=== PATIENT | female | born 1975 | race Two or more races ===

== ENCOUNTER 2018-05-27 02:20 | Emergency (ER) | payer SELFPAY ==
[~2018-05-27] VITALS: Ht 152.4 cm; Wt 77.1 kg
[2018-05-27] MEDS ORDERED: cefTRIAXone SOD 1,000 MG VL IM ONE (02:30)
[2018-05-27] MEDS ORDERED: DEXAMETHASONE SOD PHOS 10MG/1ML VIAL INJ IM ONE (02:30)
[2018-05-27] MEDS ORDERED: BENZOCAINE (DENTAL) 20 % SPRAY 60ML MT ONE ×2 (03:26→03:45)
[2018-05-27 03:33] VITALS: BP 109/55
[2018-05-27] MEDS ORDERED: ACETAMINOPHEN/CODEINE#3 (300/30mg) TAB PO ONE (03:45)
== END 2018-05-27 03:39 | disposition home or self-care (01) ==
LOC: ER 02:25
DX: J03.80 Acute tonsillitis due to other specified organisms (principal); B96.89 Other specified bacterial agents as the cause of diseases classified elsewhere
CPT/HCPCS: 70360; 96372; 99284; J0696; J1100

== ENCOUNTER 2021-12-16 18:45 | Emergency (ER) | payer OTHER ==
[~2021-12-16] VITALS: Ht 149.9 cm; Wt 90.7 kg
[2021-12-16] MEDS ORDERED: cefTRIAXone 1GM/50ML D5W 50 ML IV ONE (19:15)
[2021-12-16] MEDS ORDERED: SODIUM CHLORIDE 0.9% 1,000 ML IV ONE (19:15)
[2021-12-16 20:13] LABS: Basophils # (auto) 0 10 ^3/uL (0-0.2); Basophils % (auto) 0.2 % (0.0-2.0); Eosinophils # (auto) 0.2 10 ^3/uL (0-0.8); Hematocrit 28.7 % (36.0-46.0); Hemoglobin 8.6 g/dL (12.2-16.2); Lymphocytes # (auto) 1.3 10 ^3/uL (0.4-5.4); Lymphocytes % (auto) 6.4 % (10.0-50.0); Mean Corpuscular Hemoglobin 19.1 pg (28.0-32.0); Mean Corpuscular Hgb Conc. 30.2 g/dL (32.0-36.0); Mean Corpuscular Volume 63.2 fL (80.0-100.0); Monocytes # (auto) 0.6 10 ^3/uL (0-1.3); Neutrophils # (auto) 18.8 10 ^3/uL (1.6-8.6); Neutrophils % (auto) 89.4 % (37.0-80.0); Red Blood Cells 4.53 10^6/uL (4.0-5.20); Red Cell Distribution Width 18.3 % (11.8-14.3)
[2021-12-16 20:34] LABS: Albumin 3.2 g/dL (3.4-5.0); Calcium 8.1 mg/dL (8.5-10.1); Magnesium 2.1 mg/dL (1.6-2.6); Potassium 3.8 mmol/L (3.5-5.1)
[2021-12-16 20:39] LABS: Lactic Acid w/Reflex 2.1 mmol/L (0.4-2.0)
[2021-12-16 20:43] LABS: BUN/Creatinine Ratio 12.2; Bilirubin, Total 0.2 mg/dL (0.2-1.0); CRP High Sensitivity 1.66 mg/dL (< 0.3); Total Protein 8.1 g/dL (6.4-8.2)
[2021-12-16] MEDS ORDERED: SODIUM CHLORIDE 0.9% 1,000 ML IV SCH (21:15)
[2021-12-16] MEDS ORDERED: ONDANSETRON HCL 4 MG/2 ML VIAL IV PRN (21:15)
[2021-12-16] MEDS ORDERED: DEXTROSE (50%) 50ML SYRG IV PRN (21:15)
[2021-12-16] MEDS ORDERED: VANCOMYCIN PER PHARMACY 0 MG IV SCH (21:15)
[2021-12-16] MEDS ORDERED: MORPHINE SULFATE INJ 2 MG/ml SYRG IV PRN (21:15)
[2021-12-16] MEDS ORDERED: DOCUSATE SOD 100 MG CAP PO PRN (21:15)
[2021-12-16] MEDS ORDERED: IBUPROFEN 600 MG TAB PO PRN (21:15)
[2021-12-16] MEDS ORDERED: ASCORBIC ACID 500 MG TAB PO SCH (22:00)
[2021-12-16] MEDS ORDERED: VANCOMYCIN 1GM/250ML 250 ML IV ONE (22:00)
[2021-12-16] MEDS ORDERED: FAMOTIDINE (10MG/ML) 2ML VL IV SCH (22:00)
[2021-12-16] MEDS ORDERED: InsuLIN REG 1unit/0.01ml Soln (100units/ml) SC SCH (22:00)
[2021-12-16] MEDS ORDERED: ACCU-CHEK COMFORT CURVE STRIP VI SCH (22:00)
[2021-12-16 23:34] LABS: Urine Bacteria FEW /hpf (None Seen); Urine Blood 3+ /uL (Negative); Urine Specific Gravity 1.007 (1.001-1.035); Urine WBC 1 /hpf (0 - 5)
[2021-12-17] MEDS ORDERED: VANCOMYCIN 1GM/250ML 250 ML IV ONE (00:15)
[2021-12-17 02:59] VITALS: BP 122/62
[2021-12-17] MEDS ORDERED: cefTRIAXone 1GM/50ML D5W 50 ML IV SCH (09:00)
[2021-12-17] MEDS ORDERED: ZINC SULFATE 220mg CAP or TAB PO SCH (10:00)
[2021-12-17] MEDS ORDERED: MULTIPLE VITAMIN TAB PO SCH (10:00)
== END 2021-12-17 03:39 | disposition short-term general hospital (02) ==
LOC: EDBD 18:45 → ER 18:45
DX: D72.829 Elevated white blood cell count, unspecified (principal); D64.9 Anemia, unspecified; Z20.822 Contact with and (suspected) exposure to COVID-19
CPT/HCPCS: 36415; 71045; 74176; 80053; 81001; 82962; 83036; 83605; 83690; 83735; 83880; 84484; 84702; 85025; 86141; 86308; 87040; 87086; 87426; 87804; 93005; 96365; 96367; 96375; 99285; J0696; J3370; J3490; J7030; 96366

== ENCOUNTER 2023-02-28 06:03 | Emergency (ER) | payer SELFPAY ==
[~2023-02-28] VITALS: Ht 149.9 cm; Wt 93.3 kg
[2023-02-28 06:24] VITALS: BP 144/97; PULSE 90; RESP 16; TEMP 98.4; O2SAT 99
[2023-02-28] MEDS ORDERED: KETOROLAC TROMETH 30 MG/ML 1ML VIAL IM ONE (08:15)
[2023-02-28] MEDS ORDERED: ACETAMINOPHEN 500 MG TAB PO ONE (08:15)
[2023-02-28] MEDS ORDERED: DexAMETHasone SOD PHOS 10MG/1ML VIAL INJ PO ONE (08:15)
[2023-02-28] MEDS ORDERED: cefTRIAXone SOD 1,000 MG VL IM ONE (08:15)
[2023-02-28] MEDS ORDERED: PENI500T2 PO (08:29)
[2023-02-28] MEDS ORDERED: IBUP-1454 PO (08:29)
== END 2023-02-28 09:22 | disposition home or self-care (01) ==
LOC: ER 06:03
DX: J03.90 Acute tonsillitis, unspecified (principal); Z88.6 Allergy status to analgesic agent; Z79.1 Long term (current) use of non-steroidal anti-inflammatories (NSAID); Z79.899 Other long term (current) drug therapy
CPT/HCPCS: 96372; 99284; J0696; J1100; J1885

== ENCOUNTER 2023-04-25 17:26 | Emergency (ER) | payer SELFPAY ==
[~2023-04-25] VITALS: Ht 144.8 cm; Wt 93.4 kg
[~2023-04-25 17:26] MED LIST: IBUP-1454 PO; PENI500T2 PO
[2023-04-25] MEDS ORDERED: CLIN-203 PO (20:10)
[2023-04-25] MEDS ORDERED: IBUP1TAB5 PO (20:10)
[2023-04-25] MEDS ORDERED: LIDO2SOL18 MT (20:10)
[2023-04-25] MEDS ORDERED: PRED20TA2 PO (20:10)
[2023-04-25] MEDS ORDERED: IBUPROFEN 800 MG TAB PO ONE ×2 (20:15→20:55)
[2023-04-25] MEDS ORDERED: DexAMETHasone SOD PHOS 10MG/1ML VIAL INJ IM ONE (20:15)
[2023-04-25] MEDS ORDERED: LIDOCAINE VISCOUS 2% 15ML UD MT ONE (20:15)
[2023-04-25] MEDS ORDERED: cefTRIAXone SOD 1,000 MG VL IM ONE (20:15)
[2023-04-25] MEDS ORDERED: cefTRIAXone SOD 1,000 MG VL ONE (20:52)
[2023-04-25] MEDS ORDERED: DexAMETHasone SOD PHOS 10MG/1ML VIAL INJ ONE (20:52)
[2023-04-25] MEDS ORDERED: LIDOCAINE VISCOUS 2% 15ML UD ONE (20:55)
[2023-04-25 21:03] VITALS: BP 146/86; PULSE 84; RESP 19; TEMP 98.2; O2SAT 98
== END 2023-04-25 21:15 | disposition home or self-care (01) ==
LOC: ER 17:26
DX: J03.90 Acute tonsillitis, unspecified (principal); Z88.5 Allergy status to narcotic agent
CPT/HCPCS: 96372; 99284; J0696; J1100

== ENCOUNTER 2024-02-20 11:31 | Emergency (ER) | payer SELFPAY ==
[~2024-02-20] VITALS: Ht 144.8 cm; Wt 96.3 kg
[~2024-02-20 11:31] MED LIST changes: +CLIN-203 PO; +IBUP1TAB5 PO; +LIDO2SOL18 MT; +PRED20TA2 PO
[2024-02-20 13:02] VITALS: BP 144/97; PULSE 98; RESP 16; TEMP 98.5; O2SAT 97
[2024-02-20] MEDS ORDERED: IBUP-1454 PO (13:07)
[2024-02-20] MEDS ORDERED: LIDOCAINE HCL 1 % PF INJ 2ML AMP IJ ONE (13:15)
[2024-02-20] MEDS: TETANUS-DIPTH-ACEL PERTUSSIS 0.5ML SYR Tdap IM ONE (13:53)
[2024-02-20] MEDS: LIDOCAINE W/ EPINEPHRINE 1% 20ML VIAL ID ONE (13:53)
== END 2024-02-20 14:24 | disposition home or self-care (01) ==
LOC: ER 11:31
DX: S61.011A Laceration without foreign body of right thumb without damage to nail, initial encounter (principal); Z88.6 Allergy status to analgesic agent; W26.8XXA Contact with other sharp object(s), not elsewhere classified, initial encounter; Y93.89 Activity, other specified; Y92.89 Other specified places as the place of occurrence of the external cause; Y99.8 Other external cause status
CPT/HCPCS: 12001; 90471; 90715

== ENCOUNTER 2024-08-30 11:21 | Emergency (ER) | payer MEDICAID, OTHER ==
[~2024-08-30] VITALS: Ht 152.4 cm; Wt 97.5 kg
--- NOTE | 2024-08-30 11:37 | ECG ---
[facility] Test Date: 2024-08-30 Test Time: 11:36:16 Pat Name: BART VELAZCO Department: ER Room: Gender: F Monkey Breeder: JOSEPH : 1975 Requested By: NIKOLAY BIRMINGHAM Order Number: [id number] Reading MD: Jermaine Salcedo Measurements Intervals [place] Rate: 84 P: 15 OR: 150 QRS: -46 QRSD: 86 T: 75 QT: 359 QTc: 425 Interpretive Statements Sinus rhythm Probable left atrial enlargement Left anterior fascicular block Abnormal R-wave progression, early transition Nonspecific T abnrm, anterolateral leads Electronically Signed On 09-03-2024 21:49:54 PST by Jermaine Salcedo Please click the below link to view image of tracing.
--- NOTE | 2024-08-30 11:44 | ED.PDOC ---
GI ASSESSMENT HPI Comments Past medical history: Denies any Past surgical history: Diverticulitis and C-sectionx2 Allergies: Morphine HPI: Poor Historian. 48-year-old female presents to emergency department for one day history of diffuse abdominal pain with left flank pain. Pain is worse with any p.o. intake. Describes the pain as cramping and burning. No other alleviating or precipitating factors. Denies any vomiting or diarrhea. Patient has some mild nausea. Denies any fever. Patient also complains of generalized weakness. REVIEW OF SYSTEMS: CONSTITUTIONAL: Denies acute: fever, diaphoresis, chills, HEAD: Denies acute: headache, photophobia Eyes: Denies acute: Double vision, vision loss, eye pain, eye discharge. EARS: Denies acute: tinnitus, hearing loss, ear discharge, ear pain, THROAT: Denies acute: sore throat, swelling, difficulty swallowing , pain with swallowing, change in voice. NECK: Denies acute: neck pain, neck swelling, stiff neck. HEART: Denies acute : chest pain, palpitations, LUNGS: Denies acute: SOB, wheezing, cough, hemoptysis ABDOMEN: Denies acute: Vomiting, diarrhea, melena , hematemesis, hematochezia SKIN: Denies acute: rash, redness, lesions, itchiness. EXTREMITIES: Denies acute: calf pain, numbness, tingling, weakness, denies pain in extremity. Denies acute: Low back pain. Neuro: Denies acute: focal neurological deficit, motor or sensory focal neurological deficit, tremors, seizure like activity, confusion, dizziness, change in mental status, loss of bowel or bladder function, cauda equina like symptoms. : Denies acute: dysuria, hematuria, flank pain, increase in urinary frequency. PSYCH: Denies acute: hallucination, suicidal ideation, homicidal ideation. FEMALE: Denies acute: abnormal vaginal bleeding, foul odor, unusual discharge. PHYSICAL EXAM: General: no acute distress, awake and alert. Head: normocephalic, atraumatic. Neck: supple, trachea is midline, no swelling. Throat: Normal phonation. Eyes:, no erythema, no purulent discharge, no proptosis, no icterus. Heart: regular rate, regular rhythm, no significant murmur appreciated. Lungs: no apparent respiratory distress, Able to speak in full sentences. No wheezing, no rhonchi, no crackles. No stridors Clear to auscultation bilaterally. Abdomen: Nonspecific generalized tender to palpation, non distended, soft, no guarding, no rebound, + bowel sounds. Obese Left CVA tenderness to percussion Neuro: Awake, Alert, oriented to name, self, situation, follows commands GCS=15. Speech is normal. Skin: no petechia, no purpura, no cyanosis, non-pale, not jaundice. Lower extremities: --no - Pitting edema no deformity, no focal swelling, no calf TTP. Makes eye contact. moves all four extremities. Face: no apparent facial droop. Ambulating in the ED independently. Ears: Normal appearing TM b/l, ED COURSE: Time Seen by MD: 11:35 Primary Care Provider: NONE Reviewed Notes: Nurses Notes, Medications, Allergies Allergies: Coded Allergies: Morphine (Verified Allergy, Unknown, 12/17/21) PT REPORTS HIVES AND "SWELLING" Home Meds Active Scripts Ondansetron Odt 4MG Tab (ZOFRAN PO) 4 Mg Tb, 4 MG PO Q8HPRN PRN for 3 Days, #9 TAB ODT TAB-DISSOLVE IN MOUTH, THEN SWALLOW Prov:NIKOLAY BIRMINGHAM DO 08/30/24 Ciprofloxacin Hcl (Cipro) 500 Mg Tab, 500 MG PO BID for 7 Days, #14 TAB Prov:NIKOLAY BIRMINGHAM DO 08/30/24 Ibuprofen (Ibuprofen) 600 Mg Tab, 1 TAB PO TIDPRN PRN for 10 Days, #30 TAB 0 Refills Prov:VALE FERRARO DIRECTOR NURSING SERVICE 02/20/24 Ibuprofen Micronized (Ibuprofen) 600 Mg Tab, 1 TAB PO Q6HR, #20 TAB as needed for pain Prov:KRUNAL GRAJEDA DIRECTOR NURSING SERVICE 04/25/23 Lidocaine Hcl (Lidocaine Viscous) 2 % Gladis, 5 ML MT Q6HR, #100 ML as needed for sorethroat Prov:KRUNAL GRAJEDA DIRECTOR NURSING SERVICE 04/25/23 Prednisone (Prednisone) 20 Mg Tab, 1 TAB PO BID for 5 Days, #10 TAB start tomorrow with food Prov:KRUNAL GRAJEDA DIRECTOR NURSING SERVICE 04/25/23 Clindamycin HCl (Clindamycin Hydrochloride) 300 Mg Cap, 1 TAB PO QID for 10 Days, #40 CAP Prov:KRUNAL GRAJEDA Q DIRECTOR NURSING SERVICE 04/25/23 Ibuprofen (Ibuprofen) 600 Mg Tab, 600 MG PO TIDP PRN for 10 Days, #30 TAB 0 Refills Prov:VALE FERRARO DIRECTOR NURSING SERVICE 02/28/23 Penicillin V Potassium (Veetids) 500 Mg Tab, 1 TAB PO BID for 10 Days, #20 TAB 0 Refills Prov:VALE FERRARO DIRECTOR NURSING SERVICE 02/28/23 Information Source: Patient Mode of Arrival: Ambulatory Timing: Days Duration: Since onset, Days Prehospital treatment: None Quality: Aching Vomitus: None Stool: Normal Severity: Moderate Recent: None Recent Hx of: None Pain Location: Diffuse Associated sign and symptoms: Nausea, Abdominal Pain Past Medical History PAST MEDICAL HISTORY: Denies Surgical History (Other): Diverticulitis and C-Sectionx2 SHORE HAND DREDGE OR BARGE History: No Pertinent SHORE HAND DREDGE OR BARGE History Family History Family History: Reviewed,noncontributory to illness, Unknown Social History Smoker: Non-Smoker Alcohol: Denies ETOH Use Drugs: Denies Drug Use Lives In: Home Was a procedure done? Was a procedure done?: No GI differential Dx Differential Diagnosis: Other (DDX include Diverticulitis, colitis, gastroenteritis, acute abdomen, SBO, enteritis, constipation, volvulus, appendicitis, Gallbladder disease, choledocolithiasis, ascending cholangitis, pancreatitis, intraAbdominal mass/neoplasm, hepatitis, UTI, pylonephritis, kidney stone, aneurysm, dissection, Inflammatory bowel disease, gastroparesis, ischemic bowel, ovarian torsion, ovarian cyst/mass, tubo-ovarian abscess, , ectopic , PID, STD.) X-Ray, Labs, Meds, VS Vital Signs Date Time Temp Pulse Resp B/P (MAP) Pulse Ox O2 Delivery O2 Flow Rate FiO2 08/30/24 18:26 74 17 98 Room Air 08/30/24 18:26 98.7 74 17 136/95 (109) 98 98.7 08/30/24 11:36 84 08/30/24 11:35 97.6 87 20 154/89 (110) 96 Lab Test 08/30/24 14:56 08/30/24 12:54 08/30/24 11:54 08/30/24 11:46 Range/Units Troponin I High Sensitivity 3 L < 3 L 3 L </=34 ng/L White Blood Count 8.2 4.4-10.8 10^3/uL Red Blood Count 5.40 H 4.0-5.20 10^6/uL Hemoglobin 10.3 L 12.2-16.2 g/dL Hematocrit 33.7 L 36.0-46.0 % Mean Corpuscular Volume 62.4 L 80.0-100.0 fL Mean Corpuscular Hemoglobin 19.0 L 28.0-32.0 pg Mean Corpuscular Hemoglobin Concent 30.4 L 32.0-36.0 g/dL Red Cell Distribution Width 18.3 H 11.8-14.3 % Platelet Count 382 140-450 10^3/uL Mean Platelet Volume 8.7 6.9-10.8 fL Neutrophils (%) (Auto) 63.0 37.0-80.0 % Lymphocytes (%) (Auto) 29.2 10.0-50.0 % Monocytes (%) (Auto) 6.4 0.0-12.0 % Eosinophils (%) (Auto) 1.2 0.0-7.0 % Basophils (%) (Auto) 0.2 0.0-2.0 % Neutrophils # (Auto) 5.1 1.6-8.6 10 ^3/uL Lymphocytes # (Auto) 2.4 0.4-5.4 10 ^3/uL Monocytes # (Auto) 0.5 0-1.3 10 ^3/uL Eosinophils # (Auto) 0.1 0-0.8 10 ^3/uL Basophils # (Auto) 0 0-0.2 10 ^3/uL Nucleated Red Blood Cells 0.1 % Platelet Estimate Adequate Hypochromasia (manual) Moderate Microcytosis Moderate Ovalocytes Few Schistocytes Few Sodium Level 136 136-145 mmol/L Potassium Level 4.2 3.5-5.1 mmol/L Chloride Level 100 98-107 mmol/L Carbon Dioxide Level 26 20-31 mmol/L Anion Gap 10 5-15 Blood Urea Nitrogen 9 9-23 mg/dL Creatinine 0.63 0.550-1.02 mg/dL Glomerular Filtration Rate Calc 108 >90 mL/min BUN/Creatinine Ratio 14.3 10.0-20.0 Serum Glucose 101 74-106 mg/dL Lactic Acid Level 1.0 0.4-2.0 mmol/L Calcium Level 9.8 8.7-10.4 mg/dL Total Bilirubin 0.3 0.2-1.0 mg/dL Aspartate Amino Transferase (AST) 37 13-40 U/L Alanine Aminotransferase (ALT) 45 H 7-40 U/L Alkaline Phosphatase 80 46-116 U/L Total Protein 7.5 5.7-8.2 g/dL Albumin 4.8 3.2-4.8 g/dL Lipase 48 12-53 U/L Influenza Type A Antigen Negative Negative Influenza Type B Antigen Negative Negative SARS-CoV-2 Antigen (Rapid) Negative NEGATIVE Test 08/30/24 11:41 Range/Units Urine Color Yellow Yellow Urine Clarity Clear Clear Urine pH 6.0 5.0-9.0 Urine Specific [place] 1.016 1.001-1.035 Urine Protein Negative Negative Urine Ketones Negative Negative Urine Blood Negative Negative /uL Urine Nitrite Negative Negative Urine Bilirubin Negative Negative Urine Urobilinogen Normal Negative mg/dL Urine Leukocyte Esterase Negative Negative /uL Urine RBC 2 0 - 4 /hpf Urine Microscopic WBC 1 0-5 /HPF Urine Squamous Epithelial Cells Few <5 /hpf Urine Bacteria None seen None Seen /hpf Urine Mucus Few None Seen Urine Glucose Normal Normal mg/dL Current Medications Medications (Trade) Dose Ordered Sig/Fannie Route Start Time Stop Time Status Last Admin Sodium Chloride 1,000 ml @ 1,000 mls/hr Q1H ONCE IV 08/30/24 14:45 08/30/24 15:44 DC 08/30/24 15:09 Ondansetron HCl (Zofran) 8 mg ONCE ONCE IV 08/30/24 14:45 08/30/24 14:48 DC 08/30/24 15:09 Acetaminophen/ Hydrocodone Bitart ([place] 5/325MG Tab) 1 tab ONCE ONCE PO 08/30/24 14:45 08/30/24 14:50 DC 08/30/24 15:09 Ketorolac Tromethamine (Toradol Injection) 30 mg ONCE ONCE IV 08/30/24 18:15 08/30/24 18:16 DC 08/30/24 18:[address] [address] Ph: [phone] DIAGNOSTIC IMAGING Diagnostic Imaging Report : [id number] Signed PATIENT: BART VELAZCO ACCT: [id number] UNIT: [id number] : 1975 LOC: ER ROOM / BED: / AGE / SEX: 48 / F ADM STATUS: REG ER SERVICE 1133 ORDERING PHYSICIAN: NIKOLAY BIRMINGHAM DO PROCEDURE(s): CXRP - CHEST PORTABLE REASON: abd pain/weakness/nausea ORDER NUMBER(s): [id number], ACCESSION NUMBER(s): [id number] CHEST RADIOGRAPH Indication: abd pain/weakness/nausea Technique: Single frontal view of the chest was obtained Comparison: None FINDINGS: Lines and Tubes: None Lungs: No focal consolidation. Pleura: No effusion. No pneumothorax. Cardiomediastinal contours: Unremarkable Bones: No acute osseous abnormality. IMPRESSION: No acute cardiopulmonary disease. ATED BY: REINIER REDD MD DICTATED DATE/TIME: 08/30/24 1208 SIGNED BY: REINIER REDD MD SIGNED DATE/TIME: 08/30/24 1208 CC: [place] [id number] Ph: [phone] DIAGNOSTIC IMAGING Diagnostic Imaging Report : [id number] Signed PATIENT: BART VELAZCO ACCT: [id number] UNIT: [id number] : 1975 LOC: ER ROOM / BED: / AGE / SEX: 48 / F ADM STATUS: REG ER SERVICE 1133 ORDERING PHYSICIAN: NIKOLAY BIRMINGHAM DO PROCEDURE(s): ABPL - CT AB PEL WO CON-NO ORAL OR IV REASON: abd pain/weakness/nausea ORDER NUMBER(s): [id number], ACCESSION NUMBER(s): [id number] Exam: CT CT AB PEL WO CON-NO ORAL OR IV History: abd pain/weakness/nausea Comparison Study: CT ABD PELVIS WO CONTRAST on DOS: 12/16/21 Technique: Multidetector spiral CT of the abdomen and pelvis was performed from lung bases to pubic symphysis. Imaging was performed without IV contrast. Axial, coronal and sagittal multiplanar reformats were obtained from the axial data set by the technologist. Radiation dose : Abdomen/Pelvis: CTDIvol 19.68 mGy, DLP 1005.55 mGy*cm. Findings: Evaluation of solid organs is limited due to lack of intravenous contrast use. Lung Bases: Less than 6 mm nodule left lung base. Liver: The liver is normal in size. No focal lesions. Gallbladder and biliary Tree: Cholelithiasis noted without secondary findings of cholecystitis or biliary obstruction. Spleen: Unremarkable Pancreas: The pancreas is grossly normal in appearance. Adrenal Glands: Unremarkable Kidneys: Kidneys are grossly normal without calculi or hydronephrosis. Bladder: Grossly unremarkable for degree of distention. Bowel: The stomach is grossly normal in appearance. Small bowel and colon are normal in caliber and distribution. Normal appendix is visualized in the right lower quadrant without findings of appendicitis. Ascites: Absent Lymphadenopathy: Subcentimeter retroperitoneal and mesenteric lymph nodes are noted. Abdominal wall and Mesentery: Unremarkable. Vasculature: The visualized abdominal aorta is normal in size and caliber. Evaluation of abdominal and pelvic vessels is limited due to lack of intravenous contrast. Pelvic Organs: Right ovarian cyst measuring up to 38 mm. Musculoskeletal: No aggressive focal bony lesions, acute fractures or dislocation. IMPRESSION: 1. No acute abdominal or pelvic findings. Nonspecific mesenteric lymphadenopathy can be seen with an infectious or inflammatory process. Right ovarian cysts measuring up to 38 mm appears enlarged compared to prior. Consider pelvic ultrasound for further evaluation. Cholelithiasis. Less than 6 mm nodule left lung base appears stable compared to prior. Radiation optimization: All CT scans at this facility use at least one of these dose optimization techniques: Automated exposure control mA and/or kV adjustment per patient size (includes targeted exams where dose is matched to clinical i ndication) or iterative reconstruction. HS:Y ATED BY: VAZQUEZ EVANS MD DICTATED DATE/TIME: 08/30/244 SIGNED BY: VAZQUEZ EVANS MD SIGNED DATE/TIME: 08/30/24 122 CC: Time of 1ST Reevaluation: 12:05 Reevaluation 1ST: Unchanged Time of 2ND Reevaluation: 16:20 Reevaluation 2ND: Resolved Patient Education/Counseling: Diagnosis, Treatment Family Education/Counseling: No Family Present Comments Patient presented with the above HPI.---abdominal pain---workup was initiated. patient was found with the above mentioned diagnosis. the following medications were ordered: please refer to order lists of meds and tests obtained by myself Dr. [place]. Patient ED course and VS have been stabilized. Patient has been reassessed in the ED and remained in a stable condition. Pertinent incidental findings were discussed with the patient and/or family. Patient/family voices understanding and is agreeable with plan. Patient has been observed in the ED adequate length of time to insure improvement/stability. Escalation of care considered: Consideration of escalation to observation or admission Patient was DISCHARGED home in a stable condition. All the reports of any imaging studies that were ordered by myself were reviewed by myself. Additional Information Departure 1 Departure Time of Disposition: 16:21 Impression: Primary Impression: Abdominal pain Additional Impressions: Anemia Mesenteric lymphadenopathy Disposition: HOME / SELF CARE / HOMELESS Condition: Stable Additional Instructions: Additional discharge instructions: You MUST follow-up with your primary care/family doctor in 1 to 2 days. If you are unable to see your primary care/family doctor, please return to our emergency room for re-assessment and re-evaluation in 1 to 2 days. Return to the emergency room here in our facility or to the nearest ER [facility] if your symptoms change or worsen. CONSULTATIONS: you MUST Follow-up for consultation as soon as possible with: Dr. CARTWRIGHT doctor in 1-2 days. Please call for appointment. Follow up with OB Gyne doctor in 1-2 days. Please call for appointment. You MUST call the consultants office yourself to make an appointment. You may need to arrange that through your insurance and/or your primary/family doctor. If you are unable to see the regulatory affairs consultant in 1 to 2 days, you must return to our emergency room (or any other ER of your choice) for re-assessment and re- evaluation. Adequate fluid hydration. Below is a copy of your radiological report for follow up: [address] [address] Ph: [phone] DIAGNOSTIC IMAGING Diagnostic Imaging Report : [id number] Signed PATIENT: BART VELAZCO ACCT: [id number] UNIT: [id number] : 1975 LOC: ER ROOM / BED: / AGE / SEX: 48 / F ADM STATUS: REG ER SERVICE 1133 ORDERING PHYSICIAN: NIKOLAY BIRMINGHAM DO PROCEDURE(s): ABPL - CT AB PEL WO CON-NO ORAL OR IV REASON: abd pain/weakness/nausea ORDER NUMBER(s): [id number], ACCESSION NUMBER(s): [id number] Exam: CT CT AB PEL WO CON-NO ORAL OR IV History: abd pain/weakness/nausea Comparison Study: CT ABD PELVIS WO CONTRAST on DOS: 12/16/21 Technique: Multidetector spiral CT of the abdomen and pelvis was performed from lung bases to pubic symphysis. Imaging was performed without IV contrast. Axial, coronal and sagittal multiplanar reformats were obtained from the axial data set by the technologist. Radiation dose : Abdomen/Pelvis: CTDIvol 19.68 mGy, DLP 1005.55 mGy*cm. Findings: Evaluation of solid organs is limited due to lack of intravenous contrast use. Lung Bases: Less than 6 mm nodule left lung base. Liver: The liver is normal in size. No focal lesions. Gallbladder and biliary Tree: Cholelithiasis noted without secondary findings of cholecystitis or biliary obstruction. Spleen: Unremarkable Pancreas: The pancreas is grossly normal in appearance. Adrenal Glands: Unremarkable Kidneys: Kidneys are grossly normal without calculi or hydronephrosis. Bladder: Grossly unremarkable for degree of distention. Bowel: The stomach is grossly normal in appearance. Small bowel and colon are normal in caliber and distribution. Normal appendix is visualized in the right lower quadrant without findings of appendicitis. Ascites: Absent Lymphadenopathy: Subcentimeter retroperitoneal and mesenteric lymph nodes are noted. Abdominal wall and Mesentery: Unremarkable. Vasculature: The visualized abdominal aorta is normal in size and caliber. Evaluation of abdominal and pelvic vessels is limited due to lack of intravenous contrast. Pelvic Organs: Right ovarian cyst measuring up to 38 mm. Musculoskeletal: No aggressive focal bony lesions, acute fractures or dislocation. IMPRESSION: 1. No acute abdominal or pelvic findings. Nonspecific mesenteric lymphadenopathy can be seen with an infectious or inflammatory process. Right ovarian cysts measuring up to 38 mm appears enlarged compared to prior. Consider pelvic ultrasound for further evaluation. Cholelithiasis. Less than 6 mm nodule left lung base appears stable compared to prior. Radiation optimization: All CT scans at this facility use at least one of these dose optimization techniques: Automated exposure control mA and/or kV adjustment per patient size (includes targeted exams where dose is matched to clinical indication) or iterative reconstruction. HS:Y ATED BY: VAZQUEZ EVANS MD DICTATED DATE/TIME: 08/30/241223 SIGNED BY: VAZQUEZ EVANS MD SIGNED DATE/TIME: 08/30/24 1224 CC: [place] [id number] Ph: [phone] DIAGNOSTIC IMAGING Diagnostic Imaging Report : [id number] Signed PATIENT: BART VELAZCO ACCT: [id number] UNIT: [id number] : 1975 LOC: ER ROOM / BED: / AGE / SEX: 48 / F ADM STATUS: REG ER SERVICE 1622 ORDERING PHYSICIAN: NIKOLAY BIRMINGHAM DO PROCEDURE(s): PELUS - PELVIC REASON: ovarian cyst ORDER NUMBER(s): [id number], ACCESSION NUMBER(s): [id number] INDICATION: ovarian cyst TECHNIQUE: Multiple real-time grayscale transabdominal and transvaginal sonographic images along with color and duplex Doppler of the uterus and ovaries were obtained. COMPARISON: None FINDINGS: The uterus measures 9.7 x 5.2 x 5.0 cm. The endometrial stripe measures 0.9 cm. Right ovary measures 4.7 x 4.7 x 4.4 cm with normal Doppler color flow. Right ovarian cyst measures 3.3 cm. Left ovary is not visualized. IMPRESSION: 1. Grossly unremarkable pelvic ultrasound. ATED BY: ALEXANDRE TAFOYA MD DICTATED DATE/TIME: 08/30/241735 SIGNED BY: ALEXANDRE TAFOYA MD SIGNED DATE/TIME: 08/30/241735 CC: e-Prescriptions Ondansetron Odt 4MG Tab (ZOFRAN PO) 4 Mg Tb 4 MG PO Q8HPRN PRN for 3 Days, #9 TAB ODT TAB-DISSOLVE IN MOUTH, THEN SWALLOW Prov: NIKOLAY BIRMINGHAM DO 08/30/24 Ciprofloxacin Hcl (Cipro) 500 Mg Tab 500 MG PO BID for 7 Days, #14 TAB Prov: NIKOLAY BIRMINGHAM DO 08/30/24 Discharged With: Self Critical Care Note Critical Care Time?: No I personally scribed for NIKOLAY BIRMINGHAM DO ([email or web address]) on 08/30/24 at 11:44. Electronically submitted by Ye Blanca ([email or web address] TVA). I personally scribed for NIKOLAY BIRMINGHAM DO ([email or web address]) on 08/30/24 at 17:27. Electronically submitted by Ye Blanca ([email or web address] TVA). NIKOLAY BIRMINGHAM DO Aug 30, 2024 11:44
--- NOTE | 2024-08-30 12:10 | DVH ---
CHEST RADIOGRAPH Indication: abd pain/weakness/nausea Technique: Single frontal view of the chest was obtained Comparison: None FINDINGS: Lines and Tubes: None Lungs: No focal consolidation. Pleura: No effusion. No pneumothorax. Cardiomediastinal contours: Unremarkable Bones: No acute osseous abnormality. IMPRESSION: No acute cardiopulmonary disease.
[2024-08-30 12:22] LABS: Urine Bacteria None Seen /hpf (None Seen)
--- NOTE | 2024-08-30 12:26 | DVH ---
Exam: CT CT AB PEL WO CON-NO ORAL OR IV History: abd pain/weakness/nausea Comparison Study: CT ABD PELVIS WO CONTRAST on DOS: 12/16/21 Technique: Multidetector spiral CT of the abdomen and pelvis was performed from lung bases to pubic symphysis. Imaging was performed without IV contrast. Axial, coronal and sagittal multiplanar reform ats were obtained from the axial data set by the technologist. Radiation dose : Abdomen/Pelvis: CTDIvol 19.68 mGy, DLP 1005.55 mGy*cm. Findings: Evaluation of solid organs is limited due to lack of intravenous contrast use. Lung Bases: Less than 6 mm nodule left lung base. Liver: The liver is normal in size. No focal lesions. Gallbladder and biliary Tree: Cholelithiasis noted without secondary findings of cholecystitis or carolina iary obstruction. Spleen: Unremarkable Pancreas: The pancreas is grossly normal in appearance. Adrenal Glands: Unremarkable Kidneys: Kidneys are grossly normal without calculi or hydronephrosis. Bladder: Grossly unremarkable for degree of distention. Bowel: The stomach is grossly normal in appearance. Small bowel and colon are normal in caliber and d istribution. Normal appendix is visualized in the right lower quadrant without findings of appendicit is. Ascites: Absent Lymphadenopathy: Subcentimeter retroperitoneal and mesenteric lymph nodes are noted. Abdominal wall and Mesentery: Unremarkable. Vasculature: The visualized abdominal aorta is normal in size and caliber. Evaluation of abdominal a nd pelvic vessels is limited due to lack of intravenous contrast. Pelvic Organs: Right ovarian cyst measuring up to 38 mm. Musculoskeletal: No aggressive focal bony lesions, acute fractures or dislocation. IMPRESSION: 1. No acute abdominal or pelvic findings. Nonspecific mesenteric lymphadenopathy can be seen with an infectious or inflammatory process. Right ovarian cysts measuring up to 38 mm appears enlarged compar ed to prior. Consider pelvic ultrasound for further evaluation. Cholelithiasis. Less than 6 mm nodule left lung base appears stable compared to prior. Radiation optimization: All CT scans at this facility use at least one of these dose optimization earl hniques: Automated exposure control mA and/or kV adjustment per patient size (includes targeted exams where dose is matched to clinical indication) or iterative reconstruction. HS:Y
[2024-08-30 12:35] LABS: Basophils # (auto) 0 10 ^3/uL (0-0.2); Basophils % (auto) 0.2 % (0.0-2.0); Eosinophils # (auto) 0.1 10 ^3/uL (0-0.8); Eosinophils % (auto) 1.2 % (0.0-7.0); Hematocrit 33.7 % (36.0-46.0); Hemoglobin 10.3 g/dL (12.2-16.2); Lymphocytes # (auto) 2.4 10 ^3/uL (0.4-5.4); Lymphocytes % (auto) 29.2 % (10.0-50.0); Mean Corpuscular Hgb Conc. 30.4 g/dL (32.0-36.0); Mean Corpuscular Volume 62.4 fL (80.0-100.0); Monocytes # (auto) 0.5 10 ^3/uL (0-1.3); Monocytes % (auto) 6.4 % (0.0-12.0); Neutrophils # (auto) 5.1 10 ^3/uL (1.6-8.6); Nucleated Red Blood Cells % 0.1 %; Platelet Count (auto) 382 10^3/uL (140-450); Red Cell Distribution Width 18.3 % (11.8-14.3); White Blood Cell 8.2 10^3/uL (4.4-10.8)
[2024-08-30 12:48] LABS: Albumin 4.8 g/dL (3.2-4.8); Alkaline Phosphatase 80 U/L (46-116); Anion Gap 10 (5-15); Aspartate Aminotransferase 37 U/L (13-40); BUN/Creatinine Ratio 14.3 (10.0-20.0); Bilirubin, Total 0.3 mg/dL (0.2-1.0); Blood Urea Nitrogen 9 mg/dL (9-23); Calcium 9.8 mg/dL (8.7-10.4); Carbon Dioxide 26 mmol/L (20-31); Chloride 100 mmol/L (98-107); Glucose 101 mg/dL (74-106); Lipase 48 U/L (12-53); Potassium 4.2 mmol/L (3.5-5.1)
[2024-08-30 12:49] LABS: Alanine Aminotransferase 45 U/L (7-40); Sodium 136 mmol/L (136-145); Total Protein 7.5 g/dL (5.7-8.2)
[2024-08-30 12:54] LABS: Urine Blood Negative /uL (Negative); Urine Clarity Clear (Clear); Urine Color Yellow (Yellow); Urine Mucus FEW (None Seen); Urine Protein, UAD Negative (Negative); Urine Specific Gravity 1.016 (1.001-1.035); Urine Squamous Epithelial Cell FEW /hpf (<5); Urine Urobilinogen Normal (Negative); Urine WBC 1 /HPF (0-5)
[2024-08-30 12:58] LABS: Hypochromia Moderate; Ovalocytes FEW
[2024-08-30 12:59] LABS: Platelet Estimate Adequate
[2024-08-30 13:03] LABS: Rapid Influenza A Negative (Negative); Rapid Influenza B Negative (Negative)
[2024-08-30 13:04] LABS: COVID19 ANTIGEN SOFIA FIA NEGATIVE (NEGATIVE)
[2024-08-30] MEDS: HYDROcodone-ACET 5/325MG TAB PO ONE (15:09)
[2024-08-30] MEDS: SODIUM CHLORIDE 0.9% 1,000 ML IV ONE (15:09)
[2024-08-30] MEDS: ONDANSETRON HCL 4 MG/2 ML VIAL IV ONE (15:09)
--- NOTE | 2024-08-30 17:41 | DVH ---
INDICATION: ovarian cyst TECHNIQUE: Multiple real-time grayscale transabdominal and transvaginal sonographic images along with color and duplex Doppler of the uterus and ovaries were obtained. COMPARISON: None FINDINGS: The uterus measures 9.7 x 5.2 x 5.0 cm. The endometrial stripe measures 0.9 cm. Right ovary measures 4.7 x 4.7 x 4.4 cm with normal Doppler color flow. Right ovarian cyst measures 3.3 cm. Left ovary is not visualized. IMPRESSION: 1. Grossly unremarkable pelvic ultrasound.
[2024-08-30] MEDS ORDERED: ZOFR4T PO (18:10)
[2024-08-30] MEDS ORDERED: CIPR-173 PO (18:10)
[2024-08-30 18:26] VITALS: BP 136/95; PULSE 74; RESP 17; TEMP 98.7; O2SAT 98
[2024-08-30] MEDS: KETOROLAC TROMETH 30 MG/ML 1ML VIAL IV ONE (18:27)
== END 2024-08-30 18:32 | disposition home or self-care (01) ==
LOC: ER 11:21
DX: D64.9 Anemia, unspecified (principal); I88.0 Nonspecific mesenteric lymphadenitis; R10.84 Generalized abdominal pain; Z79.52 Long term (current) use of systemic steroids; Z79.899 Other long term (current) drug therapy; Z88.5 Allergy status to narcotic agent; Z20.822 Contact with and (suspected) exposure to COVID-19
CPT/HCPCS: 36415; 71045; 74176; 76830; 76856; 80053; 81001; 83605; 83690; 84484; 85025; 87426; 87804; 93005; 96361; 96374; 96375; 99285; J1885; J2405; J7030